=== PATIENT | male | born 1955 | race Caucasian/White ===

== ENCOUNTER → 2018-01-04 | Outpatient (CLI) | payer MEDICARE, MEDICAID ==
[~2018-01-04] MED LIST: BISM262O28 PO
[2018-01-04 15:46] LABS: HEMOGLOBIN A1C 5.8 % (4.5-6.2)
[2018-01-04 15:54] LABS: CHOL/HDL RATIO 3.9 (4.2-7.3)
== END | disposition home or self-care (01) ==
LOC: LABMN 10:00
PROVIDERS: ATTEND Psychiatry & Neurology Psychiatry
DX: F20.9 Schizophrenia, unspecified (principal); R79.89 Other specified abnormal findings of blood chemistry
CPT/HCPCS: 83036